=== PATIENT | male | born 1960 | race Caucasian/White ===

== ENCOUNTER 2017-07-07 09:53 | Emergency (ER) | END 2017-07-07 19:15 | disposition home or self-care (01) ==

== ENCOUNTER 2017-12-06 10:26 | Emergency (ER) | END 2017-12-06 12:24 | disposition home or self-care (01) ==

== ENCOUNTER 2018-05-02 07:56 | Emergency (ER) | payer MEDICARE, OTHER ==
[~2018-05-02] VITALS: Ht 167.6 cm; Wt 73.3 kg
[~2018-05-02 07:56] MED LIST: ABAC1TAB12 PO; DARU1TAB PO; LORA-441 PO; ZNO30OI TOP
[2018-05-02 07:59] VITALS: BP 139/87; PULSE 91; RESP 20; Ht 167.6 cm; Wt 73.3 kg
--- NOTE | 2018-05-02 09:22 | ERD ---
ER Documentation Chief Complaint Chief Complaint Complains of lower extrmity pain Hx of neuropathy HPI This is a 57-year-old male with history of neuropathy presenting to the ED with left great toe pain for the past 5 days. Patient states that pain is moderate to severe. He denies any trauma. Denies fevers ROS All systems reviewed and are negative except as per history of present illness. Medications Home Meds Active Scripts Zinc Oxide* (Zinc Oxide*) 20%-30GM Oint, 1 APPLIC TOP BID for 7 Days, TUB Prov:URI DELACRUZ PA-C 12/06/17 Lorazepam* (Ativan*) 0.5 Mg Tablet, 0.5 MG PO Q8H PRN for ANXIETY, #10 TAB Prov:URI DELACRUZ PA-C 12/06/17 Reported Medications Darunavir/Cobicistat (Prezcobix 800 mg-150 mg Tablet) 1 Each Tablet, 1 EACH PO DAILY, TAB 07/07/17 Abacavir/Dolutegravir/Lamivudi (Triumeq Tablet) 1 Each Tablet, 1 EACH PO DAILY, TAB 07/07/17 Allergies Allergies: Coded Allergies: No Known Allergy (Unverified , 07/07/17) PMhx/Soc History of Surgery: Yes (ortho) Anesthesia Reaction: No Hx Neurological Disorder: Yes (Neuropathy) Hx Respiratory Disorders: No Hx Cardiac Disorders: No Hx Psychiatric Problems: Yes (BiPolor) Hx Miscellaneous Medical Probl: Yes (HIV, hematuria) Hx Alcohol Use: No Hx Substance Use: No Hx Tobacco Use: No Smoking Status: Never smoker Physical Exam Vitals Vital Signs Date Temp Pulse Resp B/P (MAP) Pulse Ox O2 O2 Flow FiO2 Time Delivery Rate 05/02/18 97.0 91 20 139/87 98 07:59 (104) Physical Exam Const: No acute distress Head: Atraumatic Eyes: Normal Conjunctiva ENT: Normal External Ears, Nose and Mouth. Neck: Full range of motion. No meningismus. Resp: Clear to auscultation bilaterally Cardio: Regular rate and rhythm, no murmurs Abd: Soft, non tender, non distended. Normal bowel sounds Skin: No petechiae or rashes Back: No midline or flank tenderness Ext: Full range of motion of left foot and toes. Callus formation on the left lateral toe. Neur: Awake and alert Psych: Normal Mood and Affect Results 24 hrs Current Medications Medications Dose Sig/Lauryn Start Time Status Last (Trade) Ordered Route PRN Stop Time Admin Dose Reason Admin 1 tab ONCE ONCE 05/02/18 DC 05/02/18 Acetaminophen PO 09:30 09:11 / 05/02/18 09:31 Hydrocodone Bitart ([place] (5/325)) Procedures/MDM This is a 57-year-old male with presenting with left great toe pain for the past 5 days. Patient was given [place] in the ED for pain and then he had eloped. There was no signs of infection on his foot. I suspect that now patient may have drug-seeking behavior, especially since he eloped. Last visit he was here he was requesting medication refill for Ativan and Ambien as well. [facility]ES report did not show narcotic use XR left foot: No acute osseous abnormality. Departure Diagnosis: Primary Impression: Foot pain Condition: Stable URI DELACRUZ PA-C May 02, 2018 09:22
[2018-05-02] MEDS ORDERED: HYDROCODONE/APAP (5/325) TAB PO ONE (09:30)
== END 2018-05-02 09:41 | disposition left against medical advice (07) ==
LOC: FTE 07:56
DX: M79.672 Pain in left foot (principal); Z21 Asymptomatic human immunodeficiency virus [HIV] infection status